=== PATIENT | male | born 1965 ===

== ENCOUNTER 2016-09-21 08:42 | Emergency (ER) | payer MEDICARE, MEDICAID ==
[2016-09-21 08:42] VITALS: BMI 26.1
[2016-09-21 08:47] VITALS: BP 142/84; PULSE 78; O2SAT 100
[2016-09-21 09:02] VITALS: RESP 16; TEMP 98
--- NOTE | 2016-09-21 09:55 | ED PDOC ---
Lower Extremity Pain/Injury Time Seen by Provider: 09/21/16 08:59 Chief Complaint (Nursing): Abnormal Skin Integrity Chief Complaint (Provider): Bilateral Leg Pain History Per: Patient History/Exam Limitations: no limitations Onset/Duration Of Symptoms: Days (x14/chronic) Additional Complaint(s): 9:30 Stanley Fernandez 51 year old male presents to the ED on 09/21/16 with bilateral leg pain. The patient states that he has had chronic left foot pain due to 3 prior foot surgeries along with diabetic sores localized to bilateral shins and calves for 2 weeks prior to arrival. The patient has a past medical history inclusive of Diabetes with a past surgical history inclusive of coronary stent placement, tonsillectomy, and left foot operations. The patient denies any associated fever, chills, nausea, or vomiting. Of note, the patient has had his blood work done with a Hemoglobin A1c level of 10, 6 months prior to ED visit, decreasing to 7, 1 month prior to ED visit. PMD: Caleb Gutierres Past Medical History Reviewed: Historical Data, Nursing Documentation, Vital Signs Vital Signs: Last Vital Signs Temp 98.0 F 09/21/16 08:55 Pulse 78 09/21/16 08:55 Resp 16 09/21/16 08:55 BP 142/84 09/21/16 08:55 Pulse Ox 100 09/21/16 08:55 - Medical History PMH: Diabetes, HTN, Hypercholesterolemia, Chronic Kidney Disease - Surgical History Surgical History: Coronary Stent, Tonsillectomy - Family History Family History: States: Unknown Family Hx - Social History Alcohol: None Drugs: Denies - Home Medications Home Medications: Ambulatory Orders Medication Instructions Recorded Clindamycin [Cleocin] 300 mg PO QID 7 Days 04/15/16 oxyCODONE/Acetaminophen [Percocet 1 ea PO BID PRN #8 tab 04/15/16 5/325 mg Tab] - Allergies Allergies/Adverse Reactions: Allergies Allergy/AdvReac Type Severity Reaction Status Date / Time No Known Allergies Allergy Verified 04/15/16 08:19 Review of Systems ROS Statement: Except As Marked, All Systems Reviewed And Found Negative Constitutional: Negative for: Fever, Chills Gastrointestinal: Negative for: Nausea, Vomiting Musculoskeletal: Positive for: Leg Pain (diabetic sores localized to bilateral legs), Foot Pain (left foot pain) Physical Exam - Reviewed Nursing Documentation Reviewed: Yes Vital Signs Reviewed: Yes - Physical Exam Appears: Positive for: Non-toxic, No Acute Distress Head Exam: Positive for: ATRAUMATIC, NORMOCEPHALIC Skin: Positive for: Normal Color, Warm, Dry Eye Exam: Positive for: Normal appearance ENT: Positive for: Normal ENT Inspection Neck: Positive for: Normal, Painless ROM Cardiovascular/Chest: Positive for: Regular Rate, Rhythm, Chest Non Tender Respiratory: Positive for: Normal Breath Sounds. Negative for: Respiratory Distress Gastrointestinal/Abdominal: Positive for: Normal Exam, Soft. Negative for: Tenderness Extremity: Positive for: Normal ROM, Other (small, multiple skin breaks; no erythema, no induration; DPP +1 to bilateral lower extremities; Trace 1+ edema in shins; normal warmth) Neurologic/Psych: Positive for: Alert, Oriented (x3) - ECG O2 Sat by Pulse Oximetry: 100 (RA) Pulse Ox Interpretation: Normal Medical Decision Making Medical Decision Makin:30 Initial Impression: 51 year old male with bilateral leg pain and diabetic sores Initial Plan: Diagnosis: Diabetic neuropathy Discussed with patient to follow up with PMD and neurologist. Patient agreed to treatment plan. Scribe Attestation: Documented by Ronit Pillai, acting as a scribe for Kayla Blackwell MD. Provider Scribe Attestation: All medical record entries made by the Scribe were at my direction and personally dictated by me. I have reviewed the chart and agree that the record accurately reflects my personal performance of the history, physical exam, medical decision making, and the department course for this patient. I have also personally directed, reviewed, and agree with the discharge instructions and disposition. Disposition - Clinical Impression Clinical Impression: Diabetic neuropathy - Patient ED Disposition Is Patient to be Admitted: No Doctor Will See Patient In The: Office Counseled Patient/Family Regarding: Diagnosis, Need For Followup - Disposition Referrals: Caleb Gutierres, JORJE, LINE PILOT [Advanced Practice Nurse] - Disposition: Routine/Home Disposition Time: 09:40 Condition: STABLE Additional Instructions: take Tylenol and/or Motrin for short term relief of pain. Instructions: Diabetic Neuropathy (ED) - POA Present On Arrival: None
== END 2016-09-21 09:52 | disposition home or self-care (01) ==
LOC: H.ER 08:42
DX: E11.22 Type 2 diabetes mellitus with diabetic chronic kidney disease (principal); E78.00 Pure hypercholesterolemia, unspecified; I12.9 Hypertensive chronic kidney disease with stage 1 through stage 4 chronic kidney disease, or unspecified chronic kidney disease; Z95.5 Presence of coronary angioplasty implant and graft